=== PATIENT | male | born 1955 | race Caucasian/White ===

== ENCOUNTER 2023-03-04 08:41 | Emergency (ER) | payer MEDICARE ==
[~2023-03-04] VITALS: Ht 177.8 cm; Wt 81.6 kg
[2023-03-04 11:06] LABS: BASOPHILS # (AUTO) 0.05 K/uL (0.00-0.20); BASOPHILS % (AUTO) 0.8 % (0.0-5.0); EOSINOPHILS # (AUTO) 0.14 K/uL (0.00-0.70); EOSINOPHILS % (AUTO) 2.3 % (0.0-8.0); HEMATOCRIT 36.1 % (42-54); IMMATURE GRANULOCYTE ABSOLUTE 0.01 K/uL (0-1); LYMPHOCYTES # (AUTO) 1.5 K/uL (1.0-4.8); LYMPHOCYTES % (AUTO) 24.7 % (21.0-51.0); MEAN CORPUSCULAR HEMOGLOBIN 34.7 pg (27.0-33.0); MEAN CORPUSCULAR HGB CONC 33.5 g/dL (32.0-36.0); MEAN CORPUSCULAR VOLUME 103.4 fL (79-99); MONOCYTES # (AUTO) 0.6 K/uL (0.1-1.0); MONOCYTES % (AUTO) 10.3 % (3.0-13.0); NEUTROPHILS # (AUTO) 3.8 K/uL (1.8-7.7); NEUTROPHILS % (AUTO) 61.7 % (40.0-77.0); PLATELET COUNT (AUTO) 227 K/uL (130-400); RED BLOOD CELL COUNT(AUTO) 3.49 MIL/uL (4.50-6.20); RED CELL DISTRIBUTION WIDTH 11.7 % (11.0-15.5); WHITE BLOOD COUNT (AUTO) 6.2 K/uL (4.8-10.8)
[2023-03-04 11:26] LABS: ALBUMIN 3.4 g/dL (3.5-5.0); BILIRUBIN,TOTAL 0.5 mg/dL (0.2-1.0); CREATININE 0.8 mg/dL (0.5-1.5); POTASSIUM 4.2 mmol/L (3.5-5.1); TOTAL PROTEIN, SERUM 7.5 g/dL (6.0-8.3); URIC ACID 5.3 mg/dL (2.6-7.2)
[2023-03-04 12:18] LABS: ERYTHROCYTE SEDIMENTATION RATE 55 MM/HR (0-20)
[2023-03-04] MEDS ORDERED: CLIN-141 PO (12:57)
[2023-03-04] MEDS ORDERED: CEFTRIAXONE 1G VIAL IM ONE (13:00)
[2023-03-04] MEDS ORDERED: CEFTRIAXONE 1G VIAL IV ONE (13:30)
[2023-03-04 13:32] VITALS: BP 154/89; PULSE 66; RESP 18; O2SAT 98
== END 2023-03-04 13:33 | disposition home or self-care (01) ==
LOC: EDH 08:41
DX: L03.116 Cellulitis of left lower limb (principal); E11.9 Type 2 diabetes mellitus without complications; I10 Essential (primary) hypertension; Z88.6 Allergy status to analgesic agent
CPT/HCPCS: 99284; 96374; 84550; 80053; 85025; 85651; 87040 ×2; 83605; 86140; 36415; 73630; J0696